=== PATIENT | male | born 1970 | race Two or more races ===

== ENCOUNTER 2024-07-04 16:54 | Emergency (ER) | payer OTHER ==
[~2024-07-04] VITALS: Ht 180.3 cm; Wt 93.0 kg
[2024-07-04] MEDS ORDERED: GUAIFENESIN 200 MG/10 ML BLIST.PACK PO ONE ×2 (18:30→18:42)
[2024-07-04] MEDS ORDERED: ACETAMINOPHEN 500 MG GEL..CAP PO ONE ×2 (18:42→18:45)
[2024-07-04 19:41] LABS: HEMATOCRIT 40.2 % (39.0-48.0); HEMOGLOBIN 13.7 g/dL (13-16.00); MEAN CELL VOLUME 85.5 fL (80.0-100.00); MEAN CORPUSCULAR HEMOGLOBIN 29.2 pg (27.00-32.0); MEAN CORPUSCULAR HGB CONC 34.2 g/dl (32.0-36.0); PLATELET COUNT 160 K/uL (150-450); RED CELL DISTRIBUTION WIDTH 13.5 % (11.5-14.5)
[2024-07-04 19:46] LABS: INFLUENZA A AG POSITIVE (NEGATIVE)
[2024-07-04 20:35] LABS: COVID-19 AG NEGATIVE (NEGATIVE)
== END 2024-07-04 21:01 | disposition home or self-care (01) ==
LOC: ER 16:54
PROVIDERS: General Practice
DX: J10.1 Influenza due to other identified influenza virus with other respiratory manifestations (principal); Z20.822 Contact with and (suspected) exposure to COVID-19